=== PATIENT | male | born 1955 | race African-American/Black ===

== ENCOUNTER → 2017-08-31 | Outpatient (CLI) | payer BC ==
[~2017-08-31] MED LIST: ASPI81 PO; CARV6.252 PO; FURO1TAB93 PO; LISI-363 PO; OMEP20TA PO; POTA-267 PO; WARF5TAB PO
[2017-08-31 07:58] LABS: INTERNATIONAL NORMALIZED RATIO 2.2 RATIO; PROTHROMBIN TIME - PATIENT 22.2 SEC (9.8-11.6)
== END ==
LOC: CLAB 07:31
PROVIDERS: ATTEND Psychiatry & Neurology Neurology
DX: I63.9 Cerebral infarction, unspecified (principal); D68.52 Prothrombin gene mutation
CPT/HCPCS: 36415; 85610

== ENCOUNTER → 2017-09-07 | Outpatient (CLI) | payer BC ==
[2017-09-07 08:00] LABS: INTERNATIONAL NORMALIZED RATIO 1.1 RATIO; PROTHROMBIN TIME - PATIENT 10.9 SEC (9.8-11.6)
== END ==
LOC: CLAB 07:33
PROVIDERS: ATTEND Psychiatry & Neurology Neurology
DX: I63.9 Cerebral infarction, unspecified (principal); D68.52 Prothrombin gene mutation
CPT/HCPCS: 36415; 85610

== ENCOUNTER → 2017-09-16 | Outpatient (CLI) | payer BC ==
[2017-09-16 09:39] LABS: INTERNATIONAL NORMALIZED RATIO 5.1 RATIO; PROTHROMBIN TIME - PATIENT 51.2 SEC (9.8-11.6)
== END ==
LOC: CLAB 09:17
PROVIDERS: ATTEND Psychiatry & Neurology Neurology
DX: I63.9 Cerebral infarction, unspecified (principal); D68.52 Prothrombin gene mutation
CPT/HCPCS: 36415; 85610

== ENCOUNTER → 2017-09-29 | Outpatient (CLI) | payer BC ==
[2017-09-29 14:48] LABS: INTERNATIONAL NORMALIZED RATIO 1.3 RATIO; PROTHROMBIN TIME - PATIENT 13.4 SEC (9.8-11.6)
== END ==
LOC: CLAB 14:14
PROVIDERS: ATTEND Psychiatry & Neurology Neurology
DX: I63.9 Cerebral infarction, unspecified (principal); D68.52 Prothrombin gene mutation
CPT/HCPCS: 36415; 85610

== ENCOUNTER → 2017-10-11 | Outpatient (CLI) | payer BC ==
[2017-10-11 08:06] LABS: INTERNATIONAL NORMALIZED RATIO 1.3 RATIO; PROTHROMBIN TIME - PATIENT 12.8 SEC (9.8-11.6)
== END ==
LOC: CLAB 07:36
DX: I63.9 Cerebral infarction, unspecified (principal); D68.52 Prothrombin gene mutation
CPT/HCPCS: 36415; 85610

== ENCOUNTER → 2017-10-22 | Outpatient (CLI) | DX: I63.9 Cerebral infarction, unspecified (principal); D68.52 Prothrombin gene mutation ==

== ENCOUNTER → 2017-11-26 | Outpatient (CLI) | payer BC ==
[2017-11-26 08:39] LABS: INTERNATIONAL NORMALIZED RATIO 1.9 RATIO; PROTHROMBIN TIME - PATIENT 18.8 SEC (9.8-11.6)
== END ==
LOC: CLAB 08:12
PROVIDERS: ATTEND Psychiatry & Neurology Neurology
DX: I63.9 Cerebral infarction, unspecified (principal); D68.52 Prothrombin gene mutation
CPT/HCPCS: 36415; 85610